=== PATIENT | female | born 1955 | race Caucasian/White ===

== ENCOUNTER 2017-08-22 13:46 | Emergency (ER) | payer MEDICARE ==
[~2017-08-22] VITALS: Ht 172.7 cm; Wt 72.0 kg
[2017-08-22 13:53] VITALS: BP 127/79; PULSE 71; RESP 20; TEMP 98; O2SAT 97
[2017-08-22 14:01] VITALS: BP 129/77; PULSE 67; RESP 18; TEMP 98; O2SAT 100
[2017-08-22 14:03] VITALS: O2SAT 99
[2017-08-22 14:14] LABS: BASOPHIL % 0.5 % (0.0-2.0); EOSINOPHIL # 0.1 TH/MM3 (0-0.4); HEMATOCRIT 41.8 % (35.0-46.0); HEMOGLOBIN 14.1 GM/DL (11.6-15.3); LYMPH % 26.1 % (9.0-44.0); LYMPHOCYTE # 1.6 TH/MM3 (1.0-4.8); MEAN CELL VOLUME 84.1 FL (80.0-100.0); MEAN CORPUSCULAR HEMOGLOBIN 28.4 PG (27.0-34.0); MEAN CORPUSCULAR HGB CONC 33.8 % (32.0-36.0); MEAN PLATELET VOLUME 8.3 FL (7.0-11.0); MONO % 8.1 % (0.0-8.0); MONOCYTE # 0.5 TH/MM3 (0-0.9); NEUT % 64.3 % (16.0-70.0); PLATELET COUNT 394 TH/MM3 (150-450); RED BLOOD COUNT 4.97 MIL/MM3 (4.00-5.30); RED CELL DISTRIBUTION WIDTH 13.3 % (11.6-17.2); WHITE BLOOD COUNT 6.2 TH/MM3 (4.0-11.0)
[2017-08-22 14:28] LABS: ALBUMIN 3.9 GM/DL (3.4-5.0); ALT (GPT) 55 U/L (10-53); AST (GOT) 23 U/L (15-37); BICARBONATE 24.3 MEQ/L (21.0-32.0); BLOOD UREA NITROGEN 9 MG/DL (7-18); CALCIUM 9.6 MG/DL (8.5-10.1); CHLORIDE 112 MEQ/L (98-107); CREATININE 0.92 MG/DL (0.50-1.00); GLOMERULAR FILTRATION RATE 62 ML/MIN (>89); GLUCOSE,RANDOM 88 MG/DL (74-106); MAGNESIUM 2.3 MG/DL (1.5-2.5); SODIUM (NA) 145 MEQ/L (136-145)
[2017-08-22 14:31] LABS: ALKALINE PHOSPHATASE 156 U/L (45-117); TOTAL BILIRUBIN ADULT 0.4 MG/DL (0.2-1.0); TOTAL PROTEIN 7.5 GM/DL (6.4-8.2)
[2017-08-22] MEDS ORDERED: LEVO50TA4 PO (14:56)
[2017-08-22] MEDS ORDERED: ASPI-516 CHEW (14:56)
[2017-08-22] MEDS ORDERED: ATOR80TA45 PO (14:56)
[2017-08-22] MEDS ORDERED: CITA40TA4 PO (14:56)
[2017-08-22] MEDS ORDERED: PLAV75TA29 PO (14:56)
[2017-08-22] MEDS ORDERED: ALBUAER3 INH (14:56)
[2017-08-22] MEDS ORDERED: ADVA250A INH (14:56)
--- NOTE | 2017-08-22 15:05 | PD ---
HPI Chief Complaint: Syncope/Near-Syncope Time Seen by Provider: 13:54 Travel History International Travel<30 days: No Contact w/Intl Traveler<30days: No Traveled to known affect area: No History of Present Illness HPI Patient is a 62-year-old female presenting to the emergency department for evaluation a possible syncopal episodes/TIA versus seizure disorder. Patient reports that this morning she was having coffee on her couch when she felt the sudden heaviness come over her and she fell down onto the couch this episode lasted for a few minutes, patient was able to come to, call her sister who then called 911 to bring her to the emergency department. Patient states right before these episodes happen she feels this weird feeling like a heaviness and then it happens. She denies ever losing control of her bowels, bladder. She is aware of her surroundings when the episodes occur. Sometimes she cannot move her arms or legs but this resolves quickly. She states she was just at [facility], she had an MRI and EEGs performed. She reports that everything was negative. Her sister is at bedside giving portion of this H&P as well. Patient's episodes have been ongoing for at least 6 months, prior to that it happened maybe once a year now it has become more frequent. Patient has no history of seizure disorder, she did get diagnosed with Alzheimer's dementia in 2016. She does not take Aricept or Namenda as it was thought that these medications were causing the symptoms. Patient denies any dizziness, headache, chest pain, shortness of breath, weakness. Patient was not postictal on arrival of EMS to her house. PFSH Past Medical History Alzheimer's Disease: Yes Anxiety: Yes Depression: Yes Cerebrovascular Accident: Yes (TIA POSSIBLY) Diminished Hearing: No Thyroid Disease: Yes Tetanus Vaccination: Unknown Past Surgical History Hysterectomy: Yes Other Surgery: Yes (implants) Social History Alcohol Use: Yes Tobacco Use: Yes Substance Use: No Allergies-Medications (Allergen,Severity, Reaction): Coded Allergies: No Known Allergies (Unverified , 08/22/17) Reported Meds & Prescriptions Reported Meds & Active Scripts Active Reported Advair Diskus Inh (Fluticasone-Salmeterol Inh) 250-50 Mcg/Blist Aer 1 Puff INH BID Rinse mouth after use. Proair Hfa 8.5 GM Inh (Albuterol Sulfate) 90 Mcg/Act Aer 2 Puff INH Q4-6H PRN 108 mcg/actuation Aspirin 81 Mg Chew 81 Mg CHEW DAILY Plavix (Clopidogrel Bisulfate) 75 Mg Tab 75 Mg PO DAILY Levothyroxine (Levothyroxine Sodium) 50 Mcg Tab 50 Mcg PO DAILY Atorvastatin (Atorvastatin Calcium) 80 Mg Tab 80 Mg PO HS Citalopram (Citalopram Hydrobromide) 40 Mg Tab 40 Mg PO DAILY Review of Systems Except as stated in HPI: all other systems reviewed are Neg Eyes: No: Blurred Vision HENT: No: Headaches, Lightheadedness Cardiovascular: No: Chest Pain or Discomfort, Tachycardia Respiratory: No: Shortness of Breath Gastrointestinal: No: Nausea, Abdominal Pain Musculoskeletal: No: Myalgias Neurologic: Positive: Syncope, No: Weakness, Focal Abnormalities, Coordination Problem, Tremor, Headache, Change in Mentation, Slurred Speech, Paresthesia, Incontinence, Sensory Disturbance Physical Exam Narrative GENERAL: Well-developed, well-nourished, alert female. Presenting in no acute distress. SKIN: Warm and dry. HEAD: Atraumatic. Normocephalic. EYES: Pupils equal and round. No scleral icterus. No injection or drainage. ENT: No nasal bleeding or discharge. Mucous membranes pink and moist. NECK: Trachea midline. No JVD. CARDIOVASCULAR: Regular rate and rhythm. RESPIRATORY: No accessory muscle use. Clear to auscultation. Breath sounds equal bilaterally. GASTROINTESTINAL: Abdomen soft, non-tender, nondistended. Hepatic and splenic margins not palpable. MUSCULOSKELETAL: Extremities without clubbing, cyanosis, or edema. No obvious deformities. NEUROLOGICAL: Awake and alert. No obvious cranial nerve deficits. Motor grossly within normal limits. Five out of 5 muscle strength in the arms and legs. Normal speech. PSYCHIATRIC: Appropriate mood and affect; insight and judgment normal. Data Data Last Documented VS Vital Signs Date Time Temp Pulse Resp B/P (MAP) Pulse Ox O2 Delivery O2 Flow Rate FiO2 08/22/17 17:54 75 20 130/78 (95) 97 Room Air 08/22/17 14:01 98.0 Orders Orders Electrocardiogram (08/22/17 13:57) Complete Blood Count With Diff (08/22/17 13:57) Comprehensive Metabolic Panel (08/22/17 13:57) Magnesium (Mg) (08/22/17 13:57) Urinalysis - C+S If Indicated (08/22/17 13:57) Ecg Monitoring (08/22/17 13:57) Iv Access Insert/Monitor (08/22/17 13:57) Oximetry (08/22/17 13:57) Lactic Acid (08/22/17 13:57) Drug Screen, Random Urine (08/22/17 13:57) Sodium Chlor 0.9% 1000 Ml Inj (Ns 1000 M (08/22/17 17:00) Labs Laboratory Tests Test 08/22/17 14:05 08/22/17 17:12 White Blood Count 6.2 TH/MM3 Red Blood Count 4.97 MIL/MM3 Hemoglobin 14.1 GM/DL Hematocrit 41.8 % Mean Corpuscular Volume 84.1 FL Mean Corpuscular Hemoglobin 28.4 PG Mean Corpuscular Hemoglobin Concent 33.8 % Red Cell Distribution Width 13.3 % Platelet Count 394 TH/MM3 Mean Platelet Volume 8.3 FL Neutrophils (%) (Auto) 64.3 % Lymphocytes (%) (Auto) 26.1 % Monocytes (%) (Auto) 8.1 % Eosinophils (%) (Auto) 1.0 % Basophils (%) (Auto) 0.5 % Neutrophils # (Auto) 4.0 TH/MM3 Lymphocytes # (Auto) 1.6 TH/MM3 Monocytes # (Auto) 0.5 TH/MM3 Eosinophils # (Auto) 0.1 TH/MM3 Basophils # (Auto) 0.0 TH/MM3 CBC Comment DIFF FINAL Differential Comment Blood Urea Nitrogen 9 MG/DL Creatinine 0.92 MG/DL Random Glucose 88 MG/DL Total Protein 7.5 GM/DL Albumin 3.9 GM/DL Calcium Level 9.6 MG/DL Magnesium Level 2.3 MG/DL Alkaline Phosphatase 156 U/L Aspartate Amino Transf (AST/SGOT) 23 U/L Alanine Aminotransferase (ALT/SGPT) 55 U/L Total Bilirubin 0.4 MG/DL Sodium Level 145 MEQ/L Potassium Level 3.9 MEQ/L Chloride Level 112 MEQ/L Carbon Dioxide Level 24.3 MEQ/L Anion Gap 9 MEQ/L Estimat Glomerular Filtration Rate 62 ML/MIN Lactic Acid Level 2.3 mmol/L Urine Color YELLOW Urine Turbidity CLEAR Urine pH 8.0 Urine Specific [place] 1.011 Urine Protein NEG mg/dL Urine Glucose (UA) NEG mg/dL Urine Ketones NEG mg/dL Urine Occult Blood NEG Urine Nitrite NEG Urine Bilirubin NEG Urine Urobilinogen LESS THAN 2 mg/dL Urine Leukocyte Esterase NEG Urine RBC LESS THAN 1 /hpf Urine WBC 1 /hpf Urine Mucus FEW /lpf Microscopic Urinalysis Comment CULT NOT INDICATED Urine Opiates Screen NEG Urine Barbiturates Screen NEG Urine Amphetamines Screen NEG Urine Benzodiazepines Screen NEG Urine Cocaine Screen NEG Urine Cannabinoids Screen NEG MDM Medical Decision Making Medical Screen Exam Complete: Yes Emergency Medical Condition: Yes Interpretation(s) Vital Signs Date Time Temp Pulse Resp B/P (MAP) Pulse Ox O2 Delivery O2 Flow Rate FiO2 08/22/17 14:03 99 Room Air 08/22/17 14:01 98.0 67 18 129/77 (94) 100 Room Air 08/22/17 13:59 100 Room Air 08/22/17 13:53 98.0 71 20 127/79 (95) 97 Differential Diagnosis Seizure versus TIA versus syncope versus metabolic abnormality versus pseudoseizures versus other Narrative Course Patient is well-appearing 62-year-old female presenting for evaluation of a syncopal episode. Patient's vital signs are stable. EKG shows normal sinus rhythm. Labs ordered and pending. Medical records requested from [facility]. Sister is at bedside. Patient had an episode here, staff was called to bedside. Patient was witnessed laying in her bed breathing heavily. There was no seizure-like activity observed. Patient was given a sternal rub and opens her eyes and responded to pain. Labs reviewed, no acute findings identified. Discussed with sister and sister states that these episodes happen more often when patient is alone, she reports she is very anxious. She is not on any current seizure medication, she also reports that patient was upset at [facility] because they had no specific diagnosis to give her because her EEG and MRIs were negative. Additionally patient has appointment with her neurologist tomorrow. Sister also stated that her younger sister has an actual seizure disorder and patient called her to find out what kind of symptoms she had when she was having a seizure. Patient has had no further "episodes" in the emergency department. She has no focal deficits. Labs are unremarkable. Patient will be discharged home. She can return to emergency department for any new or worsening symptoms. An attempt was made to obtain medical records from [facility]. After 4 hours we still do not have records. However sister does report that the testing was all negative. Diagnosis Primary Impression: Seizure-like activity Referrals: Khang Campbell MD PhD 1 day Patient Instructions: Anxiety (ED), General Instructions, Near Syncope (ED) Additional Instructions: Follow-up with Dr. Campbell Follow-up with your primary doctor Return to emergency department for any new or worsening symptoms Med/Other Pt SpecificInfo: No Change to Meds Disposition: 01 DISCHARGE HOME Condition: Stable Brynn Hawkins [facility] Aug 22, 2017 15:05
[2017-08-22 15:58] VITALS: BP 141/79; PULSE 79; RESP 18; O2SAT 99
[2017-08-22] MEDS ORDERED: SODIUM CHLOR 0.9% 1000 ML INJ 1,000 ML IV ONE (17:00)
[2017-08-22 17:43] LABS: BILIRUBIN, URINE NEG (NEG); BLOOD, URINE NEG (NEG); GLUCOSE,URINE NEG (NEG); KETONE, URINE NEG (NEG); MUCUS URINE FEW /lpf (OCC); NITRITE,URINE NEG (NEG); URINE COLOR YELLOW (YELLW/STRAW); URINE LEUKOCYTE ESTERASE NEG (NEG)
[2017-08-22 17:54] VITALS: BP 130/78; PULSE 75; RESP 20; O2SAT 97
--- NOTE | 2017-08-22 18:05 | PD ---
Physical Exam Date Seen by Provider: Aug 22, 2017 Time Seen by Provider: 16:00 Narrative I, Dr. Dumont, have reviewed the advance practice practitioner's documentation and am in agreement, met with the patient face to face, made the diagnosis, and the medical decision making was done by me. *My assessment and Findings: Patient seen and evaluated with PA, please see PA notes for further details. She is here because she has had intermittent episodes of syncope with questionable seizure-like activity, but does not completely lose consciousness, does not have incontinence and does not have injuries. She had recently been evaluated for the same by [facility], and had been released, follows up with Dr. Campbell of neurology. She apparently has had 3 episodes today according to sister. She is not on any seizure medications. She apparently has had recent workup for the same issue. She is supposed to see Dr. Campbell tomorrow. Patient did not have any incontinence during these episodes, was awake and oriented, and vital signs are stable in the ER. She was actually witnessed by nurses and my PA during 1 of these episodes, but apparently was alert and did not have a postictal period. At this point, this is our very atypical symptoms for seizure and considering she already has follow-up, and a full workup recently, my plan would be to release her with follow-up to Dr. Campbell tomorrow. Return for worsening in symptoms as necessary. EKG shows NSR, no ST elevation or depression, and no arrhythmias. No significant T-wave inversions. Laboratory Tests Test 08/22/17 14:05 08/22/17 17:12 Monocytes (%) (Auto) 8.1 % (0.0-8.0) Alkaline Phosphatase 156 U/L (45-117) Alanine Aminotransferase (ALT/SGPT) 55 U/L (10-53) Chloride Level 112 MEQ/L (98-107) Estimat Glomerular Filtration Rate 62 ML/MIN (>89) Lactic Acid Level 2.3 mmol/L (0.4-2.0) Urine Mucus FEW /lpf (OCC) Data Data Last Documented VS Vital Signs Date Time Temp Pulse Resp B/P (MAP) Pulse Ox O2 Delivery O2 Flow Rate FiO2 08/22/17 17:54 75 20 130/78 (95) 97 Room Air 08/22/17 14:01 98.0 Orders Orders Electrocardiogram (08/22/17 13:57) Complete Blood Count With Diff (08/22/17 13:57) Comprehensive Metabolic Panel (08/22/17 13:57) Magnesium (Mg) (08/22/17 13:57) Urinalysis - C+S If Indicated (08/22/17 13:57) Ecg Monitoring (08/22/17 13:57) Iv Access Insert/Monitor (08/22/17 13:57) Oximetry (08/22/17 13:57) Lactic Acid (08/22/17 13:57) Drug Screen, Random Urine (08/22/17 13:57) Sodium Chlor 0.9% 1000 Ml Inj (Ns 1000 M (08/22/17 17:00) Labs Laboratory Tests Test 08/22/17 14:05 08/22/17 17:12 White Blood Count 6.2 TH/MM3 Red Blood Count 4.97 MIL/MM3 Hemoglobin 14.1 GM/DL Hematocrit 41.8 % Mean Corpuscular Volume 84.1 FL Mean Corpuscular Hemoglobin 28.4 PG Mean Corpuscular Hemoglobin Concent 33.8 % Red Cell Distribution Width 13.3 % Platelet Count 394 TH/MM3 Mean Platelet Volume 8.3 FL Neutrophils (%) (Auto) 64.3 % Lymphocytes (%) (Auto) 26.1 % Monocytes (%) (Auto) 8.1 % Eosinophils (%) (Auto) 1.0 % Basophils (%) (Auto) 0.5 % Neutrophils # (Auto) 4.0 TH/MM3 Lymphocytes # (Auto) 1.6 TH/MM3 Monocytes # (Auto) 0.5 TH/MM3 Eosinophils # (Auto) 0.1 TH/MM3 Basophils # (Auto) 0.0 TH/MM3 CBC Comment DIFF FINAL Differential Comment Blood Urea Nitrogen 9 MG/DL Creatinine 0.92 MG/DL Random Glucose 88 MG/DL Total Protein 7.5 GM/DL Albumin 3.9 GM/DL Calcium Level 9.6 MG/DL Magnesium Level 2.3 MG/DL Alkaline Phosphatase 156 U/L Aspartate Amino Transf (AST/SGOT) 23 U/L Alanine Aminotransferase (ALT/SGPT) 55 U/L Total Bilirubin 0.4 MG/DL Sodium Level 145 MEQ/L Potassium Level 3.9 MEQ/L Chloride Level 112 MEQ/L Carbon Dioxide Level 24.3 MEQ/L Anion Gap 9 MEQ/L Estimat Glomerular Filtration Rate 62 ML/MIN Lactic Acid Level 2.3 mmol/L Urine Color YELLOW Urine Turbidity CLEAR Urine pH 8.0 Urine Specific [place] 1.011 Urine Protein NEG mg/dL Urine Glucose (UA) NEG mg/dL Urine Ketones NEG mg/dL Urine Occult Blood NEG Urine Nitrite NEG Urine Bilirubin NEG Urine Urobilinogen LESS THAN 2 mg/dL Urine Leukocyte Esterase NEG Urine RBC LESS THAN 1 /hpf Urine WBC 1 /hpf Urine Mucus FEW /lpf Microscopic Urinalysis Comment CULT NOT INDICATED Urine Opiates Screen NEG Urine Barbiturates Screen NEG Urine Amphetamines Screen NEG Urine Benzodiazepines Screen NEG Urine Cocaine Screen NEG Urine Cannabinoids Screen NEG MDM Medical Record Reviewed: Yes Supervised Visit with NAI: Yes Diagnosis Primary Impression: Seizure-like activity Disposition: 01 DISCHARGE HOME Condition: Stable Bailey Dumont MD Aug 22, 2017 18:05
--- NOTE | 2017-08-23 23:13 | EKG ---
Date Performed: 08/22/2017 Time Performed: 14:04:01 PTAGE: 62 years EKG: Sinus rhythm NORMAL ECG NO PREVIOUS TRACING DOCTOR: Zeeshan Mancilla Interpretating Date/Time 08/23/2017 23:01:45
== END 2017-08-22 20:15 | disposition home or self-care (01) ==
LOC: NEPE 13:46
DX: R56.9 Unspecified convulsions (principal); G30.9 Alzheimer's disease, unspecified; F02.80 Dementia in other diseases classified elsewhere, unspecified severity, without behavioral disturbance, psychotic disturbance, mood disturbance, and anxiety; F41.9 Anxiety disorder, unspecified; F32.9 Major depressive disorder, single episode, unspecified; E07.9 Disorder of thyroid, unspecified; Z72.0 Tobacco use
CPT/HCPCS: 80053; 80307; 81001; 83605; 83735; 85025; 93005; 99284; J7030